=== PATIENT | female | born 1970 | race Caucasian/White ===

== ENCOUNTER 2018-09-22 21:42 | Inpatient (IN) ==
[2018-09-22] MEDS ORDERED: MORPHINE 4 MG/1 ML VIAL IV STA (22:28)
[2018-09-22] MEDS ORDERED: KETOROLAC 30 MG/1 ML VIAL IV STA (22:28)
[2018-09-22] MEDS ORDERED: ONDANSETRON 4 MG/2 ML VIAL IV STA (22:28)
[2018-09-22 23:12] LABS: Basophils # 0.1 10*3/uL (0.0-0.2); Basophils % 0.5 % (0.0-0.8); Eosinophils # 0.2 10*3/uL (0.0-0.87); Eosinophils % 1.5 % (0.00-10.9); Hematocrit 39.2 VOL% (35.7-47.0); Immature Granulocytes % 0.4 %; Immature Granulocytes Absolute 0.05 #; Lymphocytes # 1.3 10*3/uL (1.4-4.0); Lymphocytes % 9.9 % (21.3-54.2); Mean Corpuscular HGB Conc 35.7 GM/DL (32-36); Mean Platelet Volume 11.4 FL (9.6-12.0); Monocytes % 3.8 % (1.7-12.7); Neutrophils % 83.9 % (38.7-73.9); Platelet Count 274 T/CUMM (130-400); Red Blood Count 4.17 MC/CUMM (3.8-5.5); White Blood Count 13.1 T/CUMM (4-12)
[2018-09-22] MEDS ORDERED: HYDROmorphone 2 MG/1 ML VIAL IV STA (23:49)
[2018-09-23 00:17] LABS: Apearance,Urine CLEAR (Clear); Bacteria,Urine Occasional /HPF (Few); Bilirubin,Urine Negative (Negative); Blood, Urine Negative (Negative); Glucose,Urine (UA) Negative (Negative); Ketones,Urine Negative (Negative); Mucus,Urine Occasional /LPF (Occasional); Nitrite,Urine Negative (Negative); Protein,Urine Negative; Squamous Epithelial Cell,Urine Occasional /HPF (0-10); Urine Color Yellow (Yellow); Urine Specific Gravity 1.016 (1.001-1.035); Urine Urobilinogen < 2.0 EU/DL (0.2-1.0); WBC,Urine <1 /HPF (0-6)
[2018-09-23 00:23] LABS: Albumin 2.7 G/DL (3.4-5.0); Bilirubin,Total 1.1 MG/DL (0.2-1.0); Calcium 6.4 MG/DL (8.5-10.1); Osmolality,Calculated 261.1 MOS/KG (273-304); Total Protein 6.6 G/DL (6.4-8.3)
[2018-09-23] MEDS ORDERED: ONDANSETRON 4 MG/2 ML VIAL IV PRN (00:52)
[2018-09-23] MEDS ORDERED: HYDROmorphone 2 MG/1 ML VIAL IV STA (02:01)
[2018-09-23] MEDS: HYDROmorphone 2 MG/1 ML VIAL IV PRN ×7 (02:48→21:30)
[2018-09-23] MEDS: DEXTROSE 5% NACL 0.9% 1,000 ML IV SCH ×2 (02:55→10:48)
[2018-09-23 09:12] LABS: Risk Ratio 13.61; VLDL CHOLESTEROL 789.4 MG/DL
[2018-09-23 12:43] LABS: Hepatitis B Core IgM Quant 0.15 Index; Hepatitis B Surface Ag Quant < 0.10 Index; Hepatitis B Surface Ag Result Negative (Negative); Hepatitis C Virus Ab Quant 0.11 Index; Hepatitis C Virus Ab Result Negative (Negative)
[2018-09-23] MEDS ORDERED: ALPRAZolam 0.5 MG TABLET PO PRN (16:26)
[2018-09-23] MEDS: SODIUM CHLORIDE 0.9% 1,000 ML IV SCH (18:16)
[2018-09-23] MEDS: DICYCLOMINE 10 MG CAPSULE PO SCH (18:18)
[2018-09-23] MEDS: ESCITALOPRAM 10 MG TABLET PO SCH (21:30)
[2018-09-23] MEDS: DULoxetine 30 MG CAPSULE PO SCH (21:30)
[2018-09-23] MEDS: GABAPENTIN 400 MG CAPSULE PO SCH (21:30)
[2018-09-24] MEDS: CYCLOBENZAPRINE 10 MG TABLET PO PRN (00:05)
[2018-09-24] MEDS: HYDROmorphone 2 MG/1 ML VIAL IV PRN ×6 (00:06→21:15)
[2018-09-24] MEDS: SODIUM CHLORIDE 0.9% 1,000 ML IV SCH ×2 (04:03→17:40)
[2018-09-24 06:07] LABS: Alanine Aminotransferase 12 U/L (13-56); Albumin 2.3 G/DL (3.4-5.0); Alkaline Phosphatase 93 U/L (45-117); Aspartate Amino Transferase 14 U/L (0-37); Bilirubin,Direct < 0.100 MG/DL (0.0-0.20); Bilirubin,Indirect 0.6 MG/DL (0.0-1.0); Total Protein 5.7 G/DL (6.4-8.3)
[2018-09-24] MEDS: DICYCLOMINE 10 MG CAPSULE PO SCH ×3 (08:30→17:39)
[2018-09-24] MEDS: ESTRADIOL 1 MG TABLET PO SCH (08:30)
[2018-09-24] MEDS: DULoxetine 30 MG CAPSULE PO SCH ×2 (08:30→21:17)
[2018-09-24] MEDS: FENOFIBRATE 160 MG TABLET PO SCH (08:30)
[2018-09-24] MEDS: GABAPENTIN 400 MG CAPSULE PO SCH ×3 (08:31→21:18)
[2018-09-24] MEDS: ENOXAPARIN 40 MG/0.4 ML SYRINGE SUBCUT SCH (08:31)
[2018-09-24] MEDS: ESCITALOPRAM 10 MG TABLET PO SCH (21:17)
[2018-09-25] MEDS: SODIUM CHLORIDE 0.9% 1,000 ML IV SCH ×3 (00:14→07:46)
[2018-09-25] MEDS: CYCLOBENZAPRINE 10 MG TABLET PO PRN (00:17)
[2018-09-25] MEDS: HYDROmorphone 2 MG/1 ML VIAL IV PRN ×4 (00:17→10:58)
[2018-09-25] MEDS: GABAPENTIN 400 MG CAPSULE PO SCH ×3 (08:25→21:05)
[2018-09-25] MEDS: DULoxetine 30 MG CAPSULE PO SCH ×2 (08:25→21:06)
[2018-09-25] MEDS: ESTRADIOL 1 MG TABLET PO SCH (08:25)
[2018-09-25] MEDS: DICYCLOMINE 10 MG CAPSULE PO SCH ×3 (08:26→16:05)
[2018-09-25] MEDS: ENOXAPARIN 40 MG/0.4 ML SYRINGE SUBCUT SCH (08:26)
[2018-09-25] MEDS: FENOFIBRATE 160 MG TABLET PO SCH (08:26)
[2018-09-25] MEDS ORDERED: HYDROmorphone 2 MG TABLET PO PRN (18:36)
[2018-09-25] MEDS: ESCITALOPRAM 10 MG TABLET PO SCH (21:06)
[2018-09-25] MEDS: HYDROmorphone 2 MG TABLET PO PRN (23:22)
[2018-09-26 06:05] LABS: Albumin 2.3 G/DL (3.4-5.0); Bilirubin,Direct 0.11 MG/DL (0.0-0.20); Bilirubin,Indirect 0.7 MG/DL (0.0-1.0); Bilirubin,Total 0.8 MG/DL (0.2-1.0)
[2018-09-26] MEDS: HYDROmorphone 2 MG TABLET PO PRN (07:25)
[2018-09-26] MEDS: ENOXAPARIN 40 MG/0.4 ML SYRINGE SUBCUT SCH (08:12)
[2018-09-26] MEDS: DULoxetine 30 MG CAPSULE PO SCH ×2 (08:13→20:33)
[2018-09-26] MEDS: ESTRADIOL 1 MG TABLET PO SCH (08:13)
[2018-09-26] MEDS: FENOFIBRATE 160 MG TABLET PO SCH (08:13)
[2018-09-26] MEDS: DICYCLOMINE 10 MG CAPSULE PO SCH ×3 (08:13→16:18)
[2018-09-26] MEDS: GABAPENTIN 400 MG CAPSULE PO SCH ×3 (08:13→20:33)
[2018-09-26] MEDS ORDERED: HYDROmorphone 2 MG/1 ML VIAL IV PRN (11:10)
[2018-09-26] MEDS ORDERED: FUROSEMIDE 20 MG/2 ML VIAL IV ONE (13:37)
[2018-09-26 14:12] LABS: Calcium 8.2 MG/DL (8.5-10.1); Osmolality,Calculated 276.4 MOS/KG (273-304)
[2018-09-26] MEDS: ESCITALOPRAM 10 MG TABLET PO SCH (20:33)
[2018-09-27 08:28] VITALS: BP 128/83
[2018-09-27] MEDS: ENOXAPARIN 40 MG/0.4 ML SYRINGE SUBCUT SCH (09:02)
[2018-09-27] MEDS: FENOFIBRATE 160 MG TABLET PO SCH (09:03)
[2018-09-27] MEDS: GABAPENTIN 400 MG CAPSULE PO SCH (09:03)
[2018-09-27] MEDS: DULoxetine 30 MG CAPSULE PO SCH (09:03)
[2018-09-27] MEDS: ESTRADIOL 1 MG TABLET PO SCH (09:03)
[2018-09-27] MEDS: DICYCLOMINE 10 MG CAPSULE PO SCH (09:03)
== END 2018-09-27 11:10 | disposition home or self-care (01) | DRG 439 ==
LOC: N.ED 21:42 → N.EDINP 09-23 00:53 → N.5E 09-23 01:41
PROVIDERS: ADMIT Family Medicine; ATTEND Family Medicine